=== PATIENT | female | born 1965 | race Caucasian/White ===

== ENCOUNTER 2019-07-26 14:54 | Inpatient (IN) | payer OTHER ==
[~2019-07-26] VITALS: Ht 154.9 cm; Wt 81.0 kg
--- NOTE | 2019-07-26 14:54 | NUR ---
BIBA FROM HOME C/O ACCIDENTAL OD (SNORTED RX OXYCODONE & POSSIBLY HUSBANDS METHADONE), DAUGGHTER REPORTS CPR PRIOR TO EMS ARRIVAL, HX CHRONIC PAIN (NECK, BACK & HIP); BS 241, PIV, NARCAN & ZOFRAN GIVEN ALLERGY NURSE; EMESIS NOTED ON PT CLOTHING, DENIES SI/HI; PT SLOW TO RESPOND TO QUESTIONS BUT ANSWERS APPROP, NAD WITH SUPPL O2 IN PLACE, COMFORT MEASURES PROVIDED, CALL LIGHT WITHIN REACH.
[2019-07-26] MEDS ORDERED: ANTIDEPRESSANT (15:28)
[2019-07-26] MEDS ORDERED: MS CONTIN PO (15:28)
[2019-07-26] MEDS ORDERED: OXYC-307 PO (15:28)
[2019-07-26] MEDS ORDERED: ONDANSETRON 2MG/ML, 2ML IVPush ONE (15:30)
[2019-07-26] MEDS ORDERED: ONDANSETRON 2MG/ML, 2ML ONE (15:41)
[2019-07-26 15:47] LABS: MEAN CORPUSCULAR HEMOGLOBIN 29.8 pg (27.0-34.8); MEAN CORPUSCULAR HGB CONC 32.8 g/dL (32.4-35.8); MEAN CORPUSCULAR VOLUME 90.9 fL (80-100); MEAN PLATELET VOLUME 8.7 fL (7.4-10.4); PLATELET COUNT 236 x10^3/uL (130-400); RED BLOOD COUNT 4.79 x10^6/uL (3.82-5.3); RED CELL DISTRIBUTION WIDTH 13.7 % (9.6-15.2)
[2019-07-26 15:57] LABS: ALBUMIN 4.2 g/dL (3.4-5.0); ANION GAP 6 mmol/L (5-15); CALCIUM 9.9 mg/dL (8.5-10.1); CHLORIDE 111 mmol/L (98-107)
[2019-07-26 16:00] LABS: ALANINE AMINOTRANSFERASE 59 U/L (12-78); ALKALINE PHOSPHATASE 72 U/L (45-117); BILIRUBIN,TOTAL 0.2 mg/dL (0.2-1.0); CREATININE 1.37 mg/dL (0.55-1.02); SALICYLATE LEVEL < 1.7 mg/dL (2.8-20.0); TOTAL PROTEIN 7.7 g/dL (6.4-8.2)
--- NOTE | 2019-07-26 16:01 | NUR ---
PT UP TO BR ATTENTPTING TO PROVIDE JESSY SAMPLE, C/O NV AFTER ZOFRAN GIVEN, RESPONDS APPROP TO STAFF, COMFORT MEASURES PROVIDED, DAUGHTER & AT - DR DEWITT AWARE, CALL LIGHT WITHIN REACH. Addendum: 07/26/19 at 1701 by LION PT UP TO BR ATTEMPTING TO PROVIDE JESSY SAMPLE, C/O NV AFTER ZOFRAN GIVEN, RESPONDS APPROP TO STAFF, COMFORT MEASURES PROVIDED, DAUGHTER & AT - DR DEWITT AWARE, CALL LIGHT WITHIN REACH.
[2019-07-26 16:33] LABS: MD YES
[2019-07-26 16:35] LABS: <PLATELET ESTIMATE> ADEQUATE; <PLT MORPHOLOGY> NORMAL PLT MORPH; <RBC MORPHOLOGY> NORMAL; BAND#(MANUAL) 1.38 x10^3/uL; BANDS%(MANUAL) 8 % (0-7); LYMPHS% (MANUAL) 11 % (22-44); METAMYELOCYTES# (MANUAL) 0.35 x10^3/uL (0-0); METAMYELOCYTES% (MANUAL) 2 % (0-1); MONOS% (MANUAL) 11 % (2-9); SEG#(MANUAL) 11.76 x10^3/uL (1.8-6.8); SEGS% (MANUAL) 68 % (42-75)
[2019-07-26 16:36] LABS: AMPHETAMINE SCREEN, URINE Negative (Negative); BARBITURATE SCREEN, URINE Negative (Negative); BENZODIAZEPINE SCREEN, URINE Positive (Negative); CANNABINOID SCREEN, URINE Negative (Negative); COCAINE SCREEN, URINE Negative (Negative); METHADONE SCREEN, URINE Negative (Negative); OPIATE SCREEN, URINE Positive (Negative)
--- NOTE | 2019-07-26 17:01 | NUR ---
PT UPRIGHT ON GURNEY AWAKE & COMFORTABLE, RESPONDS APPROP TO STAFF, COMFORT MEASURES PROVIDED, AT BS- DR DEWITT AWARE, CALL LIGHT WITHIN REACH. SEEN BY SW (MARY CARMEN)- VERY DEFENSIVE WHILE DISCUSSING PT STATUS & HISTORY.
--- NOTE | 2019-07-26 18:02 | NUR ---
PT REMAINS UPRIGHT ON GURNEY AWAKE & COMFORTABLE, RESPONDS APPROP TO STAFF, NAD- ATTEMPTING TO TITRATE SUPPL O2 TO RA, COMFORT MEASURES PROVIDED, DAUGHTER AT BS WHILE WENT HOME FOR CHANGE OF CLOTHES FOR PT, COOMFORT MEASURES PROVIDED, CALL LIGHT WITHIN REACH.
[2019-07-26] MEDS ORDERED: SODIUM CHLORIDE FLUSH 10ML SYR IVF PRN (19:00)
--- NOTE | 2019-07-26 19:05 | NUR ---
REPORT GIVEN TO KEREN
--- NOTE | 2019-07-26 19:30 | NUR ---
PT UP TO RESTROOM, WILL GET FOOD FOR PT, DENIES PAIN AND NAUSEA
[2019-07-26] MEDS ORDERED: hydrALAzine 20 MG/ML, 1ML IVPush PRN (20:00)
[2019-07-26] MEDS ORDERED: ONDANSETRON 2MG/ML, 2ML IVPush PRN (20:00)
--- NOTE | 2019-07-26 20:19 | NUR ---
REPORT GIVEN, PT TRANSFERRED TO FLOOR WITH SANDWICH AND 02
--- NOTE | 2019-07-26 20:31 | NUR ---
tp rn: called [facility] and soto denied any transfer at this time.
[2019-07-26 21:02] LABS: MICROSCOPIC INDICATED
[2019-07-26 21:15] LABS: CULTURE INDICATED? YES
[2019-07-26] MEDS ORDERED: ATOR20TA86 PO (21:45)
[2019-07-26] MEDS ORDERED: BUPR100T7 PO (21:45)
[2019-07-27 01:07] VITALS: BP 118/79
[2019-07-27 05:17] LABS: MEAN CORPUSCULAR HEMOGLOBIN 29.6 pg (27.0-34.8); MEAN CORPUSCULAR HGB CONC 33.1 g/dL (32.4-35.8); MEAN CORPUSCULAR VOLUME 89.7 fL (80-100); MEAN PLATELET VOLUME 9.3 fL (7.4-10.4); PLATELET COUNT 201 x10^3/uL (130-400); RED BLOOD COUNT 4.41 x10^6/uL (3.82-5.3); RED CELL DISTRIBUTION WIDTH 13.7 % (9.6-15.2)
[2019-07-27 05:20] LABS: ANION GAP 4 mmol/L (5-15); CALCIUM 9.8 mg/dL (8.5-10.1); CHLORIDE 104 mmol/L (98-107)
[2019-07-27 05:21] LABS: CREATININE 1.05 mg/dL (0.55-1.02)
[2019-07-27 05:50] LABS: BASOPHILS # (AUTO) 0.03 x10^3/uL (0-0.1); BASOPHILS % (AUTO) 0 % (0-1); EOSINOPHILS # (AUTO) 0.06 x10^3/uL (0-0.4); EOSINOPHILS % (AUTO) 1 % (1-7); LYMPHOCYTES # (AUTO) 1.91 x10^3/uL (1-3.4); LYMPHOCYTES % (AUTO) 16 % (22-44); MD SCAN; MONOCYTES # (AUTO) 0.75 x10^3/uL (0.2-0.8); MONOCYTES % (AUTO) 6 % (2-9); NEUTROPHILS # (AUTO) 9.17 x10^3/uL (1.8-6.8); NEUTROPHILS % (AUTO) 77 % (42-75)
[2019-07-27 06:46] VITALS: BP 118/79
[2019-07-27] MEDS ORDERED: ACETAMINOPHEN 325 MG TABLET ONE (08:51)
[2019-07-27] MEDS ORDERED: ACETAMINOPHEN 325 MG TABLET PO PRN (09:00)
== END 2019-07-27 12:40 | disposition home or self-care (01) | DRG 918 ==
LOC: ED 19:01 → EDIP 19:05 → 4WST 20:24 → DCLOUNGE 07-27 12:31
PROVIDERS: ADMIT Internal Medicine; ATTEND Internal Medicine
DX: T40.2X1A Poisoning by other opioids, accidental (unintentional), initial encounter (principal); F11.20 Opioid dependence, uncomplicated; Y92.89 Other specified places as the place of occurrence of the external cause; E78.5 Hyperlipidemia, unspecified; G89.29 Other chronic pain; R09.02 Hypoxemia; Z82.49 Family history of ischemic heart disease and other diseases of the circulatory system
CPT/HCPCS: 36415; 71045; 80048; 80053; 80307; 81001; 85025; 87086; 93005; 99285; G0378